=== PATIENT | female | born 1945 | race Caucasian/White ===

== ENCOUNTER 2016-10-31 10:58 | Emergency (ER) | payer OTHER ==
[~2016-10-31] VITALS: Ht 172.7 cm; Wt 81.5 kg
[2016-10-31 11:01] VITALS: BP 174/87; PULSE 84; RESP 16; TEMP 98.1; O2SAT 100
--- NOTE | 2016-10-31 11:32 | PD ---
HPI Chief Complaint: Fall Time Seen by Provider: 11:10 Travel History International Travel<30 days: No Contact w/Intl Traveler<30days: No Traveled to known affect area: No History of Present Illness HPI This patient tripped when she was coming out of her total both and struck her left forehead on the ground. She has no loss of consciousness. She does complain of headache of moderate severity. Duration is 2 hours. No alleviating factors. She has a left forehead laceration, cannot recall her last tetanus. She scraped her left knee but has been ambulatory on it. Takes no blood thinners. PFSH Social History Alcohol Use: No Tobacco Use: No Substance Use: No Allergies-Medications (Allergen,Severity, Reaction): Coded Allergies: No Known Allergies (Unverified , 10/31/16) Review of Systems General / Constitutional: No: Fever Eyes: No: Visual changes HENT: Positive: Headaches Cardiovascular: No: Chest Pain or Discomfort Respiratory: No: Shortness of Breath Gastrointestinal: No: Abdominal Pain Genitourinary: No: Dysuria Musculoskeletal: No: Pain Skin: No Rash Neurologic: Positive: Headache, No: Weakness Psychiatric: No: Depression Endocrine: No: Polydipsia Hematologic/Lymphatic: No: Easy Bruising Physical Exam Narrative GENERAL: Well-nourished, well-developed patient in no apparent distress. SKIN: Focused skin assessment reveals no rash and nodules. Skin is Warm and dry. HEAD: She has some periorbital ecchymosis on the left side. There is a 2 cm laceration above the left brow . Normocephalic. EYES: Pupils equal and round. No scleral icterus. No injection or drainage. ENT: No nasal bleeding or discharge. Mucous membranes pink and moist. NECK: Trachea midline. No JVD. No midline tenderness CARDIOVASCULAR: Regular rate and rhythm. No murmur appreciated. RESPIRATORY: No accessory muscle use. Clear to auscultation. Breath sounds equal bilaterally. GASTROINTESTINAL: Abdomen soft, non-tender, nondistended. Hepatic and splenic margins not palpable. MUSCULOSKELETAL: No obvious deformities. No clubbing. No cyanosis. No edema. Abrasion to the left knee with no tenderness and good range of motion there NEUROLOGICAL: Awake and alert. No obvious cranial nerve deficits. Motor grossly within normal limits. Normal speech. PSYCHIATRIC: Appropriate mood and affect; insight and judgment normal. Data Data Last Documented VS Vital Signs Date Time Temp Pulse Resp B/P Pulse Ox O2 Delivery O2 Flow Rate FiO2 10/31/16 11:53 78 18 98 Room Air 10/31/16 11:01 98.1 174/[address] Brain W/O Iv Contrast(Rout) (10/31/16 ) Tetanus/Diphtheria Tox Adult (Tetanus/Di (10/31/16 11:45) MDM Medical Decision Making Medical Screen Exam Complete: Yes Emergency Medical Condition: Yes Medical Record Reviewed: Yes Differential Diagnosis Intra-Cranial hemorrhage, skull fracture, concussion Narrative Course I have reviewed the patient's electronic medical record. Patient is neurologically intact Brain CT is normal Left eye contact lens removed by the patient Procedure note: LACERATION LOCATION: Left forehead LENGTH: 2 cm NUMBER OF STITCHES/GORDON: dermabond REPAIR: The area of the laceration was irrigated out thoroughly and explored without evidence of foreign body, tendon injury or neurovascular injury. The wound was closed using dermabond. This was a single layer repair. The patient was advised to keep the dressing clean and dry. Patient tolerated the procedure well. She is aware that this is likely to cause scarring given the nature of the wound. Tetanus booster given Bactrim DS for 5 days written Diagnosis Primary Impression: Head injury due to trauma Qualified Code: S09.90XA - Head injury due to trauma, initial encounter Additional Impression: Laceration of forehead without complication Qualified Code: S01.81XA - Laceration of forehead without complication, initial encounter Additional Instructions: The patient was advised to follow up with their physician and return if they worsen. Apply ice to left brow Med/Other Pt SpecificInfo: Prescription(s) given Scripts Sulfamethoxazole-Trimethoprim (Bactrim DS)800-160 Mg Tab1 Tab PO BID #10 TAB Ref 0 Prov:Harsh Benitez MD 10/31/16 Disposition: 01 DISCHARGE HOME Condition: Stable Harsh Benitez MD October 31, 2016 11:32
[2016-10-31] MEDS ORDERED: TETANUS/DIPHTHERIA TOXOID ADULT 0.5 ML VIAL IM ONE (11:45)
--- NOTE | 2016-10-31 11:56 | RADRPT ---
EXAM DATE/TIME: 10/31/2016 11:38 [facility] COMPARISON: No previous studies available for comparison. INDICATIONS : Fall, laceration. RADIATION DOSE: 9.57 CTDIvol (mGy) MEDICAL HISTORY : None SURGICAL HISTORY : None. ENCOUNTER: Initial ACUITY: 1 day PAIN SCALE: 6/10 LOCATION: Left facial eyebrow TECHNIQUE: Multiple contiguous axial images were obtained of the head. Using automated exposure control and adj ustment of the mA and/or kV according to patient size, radiation dose was kept as low as reasonably a chievable to obtain optimal diagnostic quality images. FINDINGS: The ventricles are symmetric and normal. There is no abnormal extra-axial fluid accumulation, mass or hemorrhage identified. There is nothing to suggest acute infarction. The extracranial structures are intact. There is some soft tissue swelling in the left supraorbital region without evidence of under lying fracture. CONCLUSION: No acute intracranial injury Donell Valdez MD on October 31, 2016 at 11:52 Board Certified Radiologist. This report was verified electronically.
[2016-10-31] MEDS ORDERED: BACT800T5 PO (12:13)
[2016-10-31 12:48] VITALS: BP 142/89; TEMP 98.3
== END 2016-10-31 12:49 | disposition home or self-care (01) ==
LOC: NEPD 10:58
DX: S01.81XA Laceration without foreign body of other part of head, initial encounter (principal); W01.0XXA Fall on same level from slipping, tripping and stumbling without subsequent striking against object, initial encounter; Y92.89 Other specified places as the place of occurrence of the external cause; Z23 Encounter for immunization
CPT/HCPCS: 12011; 70450; 90471; 90714

== ENCOUNTER 2016-10-31 18:26 | Emergency (ER) | payer OTHER ==
[~2016-10-31] VITALS: Ht 170.2 cm; Wt 84.0 kg
[~2016-10-31 18:26] MED LIST: BACT800T5 PO
[2016-10-31 18:28] VITALS: BP 174/88; PULSE 78; RESP 15; TEMP 98.1; O2SAT 98
--- NOTE | 2016-10-31 19:03 | PD ---
HPI Chief Complaint: Edema Time Seen by Provider: 18:49 Travel History International Travel<30 days: No Contact w/Intl Traveler<30days: No Traveled to known affect area: No History of Present Illness HPI This is a 71-year-old female who presents for reevaluation after fall. Earlier today the patient tripped and fell, striking her face against the ground. There is no loss of consciousness. She was seen here, had a CT of the brain which was negative, as well as small laceration to the left forehead which was closed with Dermabond. She went home and she has been applying ice to the affected area and taking ibuprofen for pain which has helped. She presents now because she is developed increased soft tissue swelling over the left maxillary sinus and left forehead since then. She is not experiencing any pain. She denies any blurred vision or photophobia or pain to the eye itself. She is not on any blood thinning medications. She denies any new injuries and she has no other complaints. [facility] Social History Alcohol Use: No Tobacco Use: No Substance Use: No Allergies-Medications (Allergen,Severity, Reaction): Coded Allergies: No Known Allergies (Unverified , 10/31/16) Reported Meds & Prescriptions Reported Meds & Active Scripts Active Bactrim DS (Sulfamethoxazole-Trimethoprim) 800-160 Mg Tab 1 Tab PO BID Review of Systems Musculoskeletal: No: Pain Skin: Positive Other (positive for soft tissue swelling, bruising, pain, close laceration) Neurologic: No: Dizziness, Syncope, Focal Abnormalities, Headache Physical Exam Narrative GENERAL: This is a well-developed well-nourished female in no acute distress SKIN: Warm and dry. There is a large area of ecchymosis around the left periorbital region as well as over the left maxillary sinus. Mildly tender to palpation. There is a well well approximated laceration/abrasions left forehead with a little bit of oozing but no dehiscence of the lacerated region. HEAD: Skin as noted above Normocephalic. EYES: Pupils equal and round reactive to light extraocular muscles are intact. There is some subconjunctival hemorrhage to the left eye. There is no proptosis , no pain with extraocular range of motion, no hyphema, no chemosis. ENT: No nasal bleeding or discharge. Mucous membranes pink and moist. NECK: Trachea midline. No JVD. CARDIOVASCULAR: Regular rate and rhythm. No murmur appreciated. RESPIRATORY: No accessory muscle use. Clear to auscultation. Breath sounds equal bilaterally. GASTROINTESTINAL: Abdomen soft, non-tender, nondistended. MUSCULOSKELETAL: No obvious deformities. NEUROLOGICAL: Awake and alert. No obvious cranial nerve deficits. Motor grossly within normal limits. Normal speech. Data Data Last Documented VS Vital Signs Date Time Temp Pulse Resp B/P Pulse Ox O2 Delivery O2 Flow Rate FiO2 10/31/16 18:28 98.1 78 15 174/[address] Facial Bones W/O Iv Cont (10/31/16 ) Ice/Cold Pack (10/31/16 18:54) MDM Medical Decision Making Medical Screen Exam Complete: Yes Emergency Medical Condition: Yes Medical Record Reviewed: Yes Differential Diagnosis Facial fracture, contusion, retrobulbar hematoma, facial hematoma, subconjunctival hemorrhage, hyphema Narrative Course 71-year-old female presents for recheck after a fall. She had a negative CT the brain. She has no pain, no neurologic complaints. She has increased soft tissue swelling around the left periorbital region overlying the left maxillary sinus. Therefore CT the facial bones has been ordered to assess for facial fracture. On examination she has no evidence for retrobulbar hematoma, no proptosis, pain with extraocular range of motion, blurred vision. She does have mild subconjunctival hemorrhaging with no hyphema. She was reassured that this is a benign condition that will resolve on its own. CT of the facial bones reveals a left periorbital hematoma which is clinically what she has. She is stable for discharge. Discussed signs and symptoms that would warrant returning to the emergency room. Diagnosis Primary Impression: Periorbital hematoma of left eye Additional Impression: Subconjunctival hemorrhage of left eye Additional Instructions: Ice to the affected area several times a day 10-15 minutes at a time. Rest. Tylenol for discomfort. As discussed, if you develop severe headache, dizziness , lack of coordination, lethargy, altered mental status, persistent vomiting, blurred vision, return to the emergency room. Med/Other Pt SpecificInfo: No Change to Meds Disposition: 01 DISCHARGE HOME Condition: Stable Krishna Tarango October 31, 2016 19:03
--- NOTE | 2016-10-31 19:30 | RADRPT ---
EXAM DATE/TIME: 10/31/2016 19:13 [facility] COMPARISON: No previous studies available for comparison. INDICATIONS : Trauma; fall. Swelling to left eye and forehead. RADIATION DOSE: 44.60 CTDIvol (mGy) MEDICAL HISTORY : None SURGICAL HISTORY : None. ENCOUNTER: Initial ACUITY: 1 day PAIN SCORE: 6/10 LOCATION: facial TECHNIQUE: Volumetric scanning of the facial bones was performed. Using automated exposure control and adjustme nt of the mA and/or kV according to patient size, radiation dose was kept as low as reasonably achiev able to obtain optimal diagnostic quality images. FINDINGS: ORBITS: The orbital and infraorbital osseous structures are intact. The retroconal structures have a normal configuration. No radiopaque foreign bodies are seen. NASAL BONE: The nasal bone and maxillary spine are intact ZYGOMATIC ARCHES: Symmetric without evidence of fracture. SINUSES: The maxillary, ethmoid and frontal sinuses are intact. No air-fluid levels seen. NASAL CAVITY: The nasal septum is intact and midline. The lacrimal ducts are intact. SOFT TISSUES: Large left periorbital hematoma. INTRACRANIAL: No intracranial air seen. CRIBIFORM PLATE: Grossly intact. CONCLUSION: Periorbital hematoma on the left. No fracture. Donell Salazar MD on October 31, 2016 at 19:27 Board Certified Radiologist. This report was verified electronically.
== END 2016-10-31 20:47 | disposition home or self-care (01) ==
LOC: NEPD 18:26
DX: S00.12XA Contusion of left eyelid and periocular area, initial encounter (principal); H11.32 Conjunctival hemorrhage, left eye; W01.0XXA Fall on same level from slipping, tripping and stumbling without subsequent striking against object, initial encounter
CPT/HCPCS: 70486